=== PATIENT | male | born 1960 | race Caucasian/White ===

== ENCOUNTER 2024-04-27 07:24 | Inpatient (IN) | payer BC ==
[~2024-04-27] VITALS: Ht 180.3 cm; Wt 104.7 kg
[~2024-04-27 07:24] MED LIST: CARB25TA79 PO; GLYC1TAB18 PO
[2024-04-27] MEDS: ceFAZolin 1GM/50ML 100 ML IV ONE (08:40)
[2024-04-27] MEDS: GABAPENTIN 400 MG CAP PO ONE (09:00)
[2024-04-27] MEDS: ACETAMINOPHEN IV 1000 MG/100ML (10MG/ML) IV ONE (09:00)
[2024-04-27] MEDS: CELECOXIB 100 MG CAP PO ONE (09:00)
[2024-04-27] MEDS: TRANEXAMIC ACID 20 ML ONE (09:34)
[2024-04-27] MEDS ORDERED: ONDANSETRON HCL 4 MG/2 ML VIAL ONE (09:48)
[2024-04-27] MEDS ORDERED: KETOROLAC TROMETH 30 MG/ML 1ML VIAL ONE (09:48)
[2024-04-27] MEDS ORDERED: LIDOCAINE 1% INJ PF 5ML AMP ONE (09:48)
[2024-04-27] MEDS ORDERED: DexAMETHasone SOD PHOS 10MG/1ML VIAL INJ ONE ×2 (09:48→09:49)
[2024-04-27] MEDS ORDERED: PROPOFOL 10 MG/ML 20 ML IV ONE ×3 (09:48→11:38)
[2024-04-27] MEDS ORDERED: fentaNYL CITRATE 100 MCG/2 ML VL ONE ×2 (09:49→11:48)
[2024-04-27] MEDS ORDERED: KETAMINE 50mg/ML 1ml syringe ONE ×2 (09:49→11:48)
[2024-04-27] MEDS: EPINEPHrine HCL 1 MG/1 ML AMP ONE (10:44)
[2024-04-27] MEDS: ROPIVACAINE 0.5% (5MG/ML) 20ML AMPULE IJ ONE (10:45)
[2024-04-27] MEDS: VANCOMYCIN HCL 1000 MG VL ONE (10:45)
[2024-04-27] MEDS ORDERED: oxyCODONE HCL 5MG TAB PO PRN ×2 (11:30→12:30)
[2024-04-27 12:22] VITALS: O2SAT 96
[2024-04-27] MEDS ORDERED: ePHEDrine SULFATE 50 MG/ML AMP IV PRN (12:30)
[2024-04-27] MEDS ORDERED: FLUMAZENIL 0.1 MG/ML INJ 10ML MDV IV PRN (12:30)
[2024-04-27] MEDS ORDERED: fentaNYL CITRATE 100 MCG/2 ML VL IV PRN (12:30)
[2024-04-27] MEDS ORDERED: NALOXONE HCL 0.4 MG/ML VIAL IV PRN (12:30)
[2024-04-27] MEDS ORDERED: HYDROmorphone HCL 2 MG/ML VL/or syr IV PRN (12:30)
[2024-04-27] MEDS ORDERED: ONDANSETRON HCL 4 MG/2 ML VIAL IV PRN ×2 (12:30)
[2024-04-27] MEDS ORDERED: hydrALAZINE HCL 20 MG/ML VL IV PRN (12:30)
[2024-04-27] MEDS ORDERED: ceFAZolin 2 GM/D5W50ml 50 ML IV SCH (14:00)
[2024-04-27] MEDS: oxyCODONE HCL 5MG TAB PO PRN (16:54)
[2024-04-27] MEDS ORDERED: GLYCOPYRROLATE 0.2 MG/ML 1ML VIAL IV ONE (17:29)
[2024-04-27 17:58] VITALS: BP 135/85; PULSE 85; RESP 15; TEMP 98; O2SAT 95; O2SAT 96
[2024-04-27] MEDS: GLYCOPYRROLATE 1 MG PO SCH (18:00)
[2024-04-27] MEDS: KETOROLAC TROMETH 30 MG/ML 1ML VIAL IV SCH (18:33)
[2024-04-27] MEDS: CARBIDOPA W LEVODOPA 25/100mg TABLET PO SCH (18:33)
[2024-04-27] MEDS: ACETAMINOPHEN 325 MG TAB PO SCH (18:33)
[2024-04-27] MEDS: SODIUM CHLORIDE 0.9% 1,000 ML IV SCH (19:30)
[2024-04-27] MEDS: ceFAZolin 2 GM/D5W50ml 50 ML IV SCH (19:55)
[2024-04-27 21:00] VITALS: BP 142/89; PULSE 85; RESP 18; TEMP 97.7; O2SAT 93
[2024-04-27] MEDS: PREGABALIN 25 MG CAP PO SCH (21:23)
[2024-04-28 01:00] VITALS: BP 122/74; PULSE 76; RESP 18; TEMP 97.9; O2SAT 92
[2024-04-28 05:00] VITALS: BP 121/73; PULSE 69; RESP 18; TEMP 98.1; O2SAT 93
[2024-04-28 07:08] LABS: Anion Gap 8 (5-15); Carbon Dioxide 24 mmol/L (20-30); Chloride 105 mmol/L (98-107); Potassium 4.2 mmol/L (3.5-5.1); Sodium 137 mmol/L (136-145)
[2024-04-28 07:09] LABS: Calcium 9.1 mg/dL (8.7-10.4)
[2024-04-28 07:14] LABS: BUN/Creatinine Ratio 12.5 (10.0-20.0); Blood Urea Nitrogen 12 mg/dL (9-23); Glucose 145 mg/dL (74-106)
[2024-04-28 07:16] LABS: Basophils # (auto) 0 10 ^3/uL (0-0.2); Eosinophils # (auto) 0 10 ^3/uL (0-0.8); Hemoglobin 12.9 g/dL (13.5-17.5); Lymphocytes # (auto) 1.2 10 ^3/uL (0.4-5.4); Lymphocytes % (auto) 8.3 % (10.0-50.0); Mean Corpuscular Hemoglobin 33.8 pg (28.0-32.0); Mean Corpuscular Hgb Conc. 34.9 g/dL (32.0-36.0); Mean Corpuscular Volume 96.9 fL (80.0-100.0); Monocytes # (auto) 0.9 10 ^3/uL (0-1.3); Monocytes % (auto) 6.6 % (0.0-12.0); Neutrophils # (auto) 12.1 10 ^3/uL (1.6-8.6); Neutrophils % (auto) 85.1 % (37.0-80.0); Red Blood Cells 3.82 10^6/uL (4.5-5.90); Red Cell Distribution Width 12.3 % (11.8-14.3); White Blood Cell 14.3 10^3/uL (4.4-10.8)
[2024-04-28 08:00] VITALS: PULSE 75; RESP 16; O2SAT 96
[2024-04-28 09:00] VITALS: BP 135/78; PULSE 75; RESP 16; TEMP 98.2; O2SAT 96
[2024-04-28] MEDS: APIXABAN 2.5 MG TAB PO SCH (09:26)
[2024-04-28 13:00] VITALS: BP 125/73; PULSE 65; RESP 18; TEMP 98.1; O2SAT 96
[2024-04-28 14:42] VITALS: BP 125/73; PULSE 65; RESP 18; TEMP 98.1; O2SAT 96
== END 2024-04-28 17:30 | DRG 470 ==
LOC: SUR 07:24 → OVERFLOW 12:26 → WEST WING 18:09
PROVIDERS: ADMIT Orthopaedic Surgery; ATTEND Orthopaedic Surgery
PROC: 0SRB0JZ Replacement of Left Hip Joint with Synthetic Substitute, Open Approach (ICD-10-PCS; principal; 2024-04-27 09:54)
DX: M16.12 Unilateral primary osteoarthritis, left hip (principal)
CPT/HCPCS: 36415; 72170; 73501; 80048; 85025; 86850; 86900; 86901; 97116; 97163; 97530; G0378; J0131; J0171; J1100; J1885; J2405; J2704

== ENCOUNTER 2024-06-03 17:05 | Emergency (ER) | payer BC ==
[~2024-06-03] VITALS: Ht 180.3 cm; Wt 96.1 kg
[2024-06-03] MEDS: HYDROcodone-ACET 10/325MG TAB PO ONE (18:36)
[2024-06-03 18:50] LABS: Basophils # (auto) 0.1 10 ^3/uL (0-0.2); Basophils % (auto) 0.9 % (0.0-2.0); Eosinophils # (auto) 0.2 10 ^3/uL (0-0.8); Eosinophils % (auto) 2.7 % (0.0-7.0); Lymphocytes # (auto) 1.8 10 ^3/uL (0.4-5.4); Lymphocytes % (auto) 25.8 % (10.0-50.0); Mean Corpuscular Hemoglobin 32.3 pg (28.0-32.0); Mean Corpuscular Hgb Conc. 33.3 g/dL (32.0-36.0); Mean Corpuscular Volume 97.1 fL (80.0-100.0); Monocytes # (auto) 0.9 10 ^3/uL (0-1.3); Neutrophils # (auto) 4.2 10 ^3/uL (1.6-8.6); Neutrophils % (auto) 58.6 % (37.0-80.0); Nucleated Red Blood Cells % 0.1 %; Platelet Count (auto) 257 10^3/uL (140-450); Red Blood Cells 4.02 10^6/uL (4.5-5.90); Red Cell Distribution Width 13.6 % (11.8-14.3); White Blood Cell 7.1 10^3/uL (4.4-10.8)
[2024-06-03 18:58] LABS: Anion Gap 6 (5-15); Carbon Dioxide 29 mmol/L (20-30); Chloride 104 mmol/L (98-107); Sodium 139 mmol/L (136-145)
[2024-06-03 18:59] LABS: Calcium 10.2 mg/dL (8.7-10.4)
[2024-06-03 19:04] LABS: BUN/Creatinine Ratio 11.9 (10.0-20.0); Blood Urea Nitrogen 12 mg/dL (9-23); Glucose 96 mg/dL (74-106)
[2024-06-03 20:09] VITALS: BP 131/68; PULSE 70; RESP 16; TEMP 97.7; O2SAT 95
== END 2024-06-03 21:38 | disposition home or self-care (01) ==
LOC: ER 17:05
DX: M25.552 Pain in left hip (principal); R53.1 Weakness; Z96.642 Presence of left artificial hip joint
CPT/HCPCS: 36415; 73502; 73700; 80048; 85025